=== PATIENT | male | born 1990 | race Asian ===

== ENCOUNTER 2022-02-20 12:19 | Emergency (ER) | payer OTHER ==
[~2022-02-20] VITALS: Ht 182.9 cm; Wt 65.8 kg
[2022-02-20] MEDS ORDERED: EPINEPHRINE 1 MG/1 ML AMP ONE (12:22)
[2022-02-20] MEDS ORDERED: EPINEPHRINE 1 MG/1 ML AMP IM ONE (12:30)
[2022-02-20] MEDS ORDERED: IV NORMAL SALINE 500 ML BAG IV ONE (12:30)
[2022-02-20] MEDS ORDERED: FAMOTIDINE. 20 MG/2 ML VIAL IV ONE ×3 (12:30→12:32)
--- NOTE | 2022-02-20 13:12 | NUR ---
PT SEEN AND EVALUATED BY DR PLUMMER. EPINEPHRINE GIVEN STAT PER MD ORDER. SALINE LOCK PLACED .
--- NOTE | 2022-02-20 14:10 | NUR ---
Pt has no S/S of allergic reaction now, pt states he feels fine.
--- NOTE | 2022-02-20 14:27 | NUR ---
IV removed. Catheter intact and site benign. Pressure and 4x4 gauze applied to site. No bleeding noted.
[2022-02-20 14:28] VITALS: BP 137/85
--- NOTE | 2022-02-20 14:29 | NUR ---
Patient discharged to home in stable condition. Written and verbal after care instructions given. Patient verbalizes understanding of instructions. Stressed follow up or return to ER for worsening s/s.
== END 2022-02-20 14:30 | disposition home or self-care (01) ==
LOC: ER 12:19
DX: T78.09XA Anaphylactic reaction due to other food products, initial encounter (principal); Z91.013 Allergy to seafood; Z91.018 Allergy to other foods
CPT/HCPCS: 99284; 96374; 96361; 96372; J0171; J7040; A4663; J3490